=== PATIENT | male | born 1985 | race American Indian/Alaskan Native ===

== ENCOUNTER 2017-02-15 09:10 | Emergency (ER) | payer BC, OTHER ==
[~2017-02-15] VITALS: Ht 182.9 cm; Wt 127.3 kg
[~2017-02-15 09:10] MED LIST: ALLO100T30 PO
[2017-02-15 09:14] VITALS: BP 151/103
== END 2017-02-15 10:05 | disposition home or self-care (01) ==
LOC: ED 09:45
DX: Z76.0 Encounter for issue of repeat prescription (principal); M19.072 Primary osteoarthritis, left ankle and foot; M10.9 Gout, unspecified
CPT/HCPCS: 99283

== ENCOUNTER 2017-02-28 08:26 | Emergency (ER) | payer BC, OTHER ==
[~2017-02-28] VITALS: Ht 182.9 cm; Wt 126.0 kg
[2017-02-28 08:27] VITALS: BP 146/87
[2017-02-28] MEDS ORDERED: COLC0.6T37 PO (08:48)
[2017-02-28] MEDS ORDERED: ALBU8.5H3 IH (08:49)
== END 2017-02-28 10:53 | disposition home or self-care (01) ==
LOC: ED 09:16
DX: J45.31 Mild persistent asthma with (acute) exacerbation (principal)
CPT/HCPCS: 71010; 93005